=== PATIENT | male | born 1975 | race Caucasian/White ===

== ENCOUNTER 2016-02-12 22:39 | Emergency (ER) | payer OTHER ==
[~2016-02-12] VITALS: Ht 167.6 cm; Wt 72.7 kg
[2016-02-12 22:43] VITALS: BP 147/95; PULSE 89; RESP 16; O2SAT 97
--- NOTE | 2016-02-12 23:03 | ED.REPORT ---
HPI-General Illness Date of Service Feb 12, 2016 ED Provider: Dr. Augustine Fernandez M.D. A healthy 40 year old male presents to the ED with nasal congestion onset 10 days ago. The mucous in his nose is thick, chunky, and bad tasting. The patient also reports cough, subjective fever, shortness of breath, and a pressure headache. The shortness of breath is worse at night or when laying flat. The patient has has similar symptoms in the past. Nursing Notes Stated Complaint: COUGH & TROUBLE BREATHING Chief Complaint: FLU/Cold Symptoms Nursing Notes Reviewed: Yes Allergies: Coded Allergies: No Known Allergies (Unverified , 02/12/16) Scheduled Amoxicillin/Clav K 875-125 mg (Augmentin 875-125 mg) 1 Each Tablet 1 TABLET PO BID General Time Seen by MD: 23:02 Chief Complaint Congested Hx Obtained From: Patient Arrived By: Walk-in Sudden in Onset?: No Onset Occurred: More than a week ago... (10 days) Symptom Duration: Since onset Location: : Head Quality: Pressure Severity: Current: Moderate Severity: Maximum: Moderate Associated with: Reports: Cough, Fever, Shortness of breath Pertinent Negative: Relieved by nothing Recent Healthcare: No recent doctor visit Similar Sx Previous: Yes Past Medical History Past Medical History None reported Past Surgical History None reported Smoking History Never Smoker Ambulatory Status Independent Review of Systems Full Review of Systems Constitutional: Reports: Fever (subjective) Ears / Nose / Throat: Reports: Nasal congestion Respiratory: Reports: Non-productive cough, Shortness of breath Neurologic: Reports: Headache Complete sys rev & neg: except as marked. Physical Exam Vital Signs Vital Signs Date Time Temp Pulse Resp B/P Pulse Ox O2 Delivery O2 Flow Rate FiO2 02/12/16 22:43 36.5 89 16 147/95 97 Room Air Initial VS: Reviewed Head / Eyes: Atraumatic, Normocephalic Respiratory: Breath sounds normal, Clear to auscultation, No respiratory distress Cardiovascular: Regular rate & rhythm, Heart sounds normal Skin: Warm, Dry, No cyanosis Neurologic: Alert, Oriented, Nonfocal Psychiatric: Mood/affect normal, Behavior normal, Normal thought content General/Constitutional: Awake, Alert ENT: Airway patent, Mucous membranes moist, Pharynx NL Nasal congestion Dry cough Re-Eval/Medical Decision Med Decision/Clinical Course Nasal congestion and possible sinusitis. Drainage with Afrin or decongestants recommended. If this is unavailable and commerce symptoms are progressive, then he may fill and start his Augmentin prescription. Albuterol puffer already at home for dry cough. Recommended he use it. Follow up with PCP. Time of Eval: 23:15 Patient Status: Condition improved Re-Evaluation/Progress Note: Discussed with patient diagnosis and plan for discharge. Follow-up and return to the ER instructions given. Patient agrees with plan for care and all questions were addressed. Counseled Regarding: Diagnosis, Need for follow-up, When/why to return to ED Discharge & Departure Primary Impression: Sinusitis Sinusitis location: maxillary Chronicity: acute Recurrence: not specified Qualified Code: J01.00 - Acute maxillary sinusitis, unspecified Additional Impressions: Upper respiratory infection URI type: unspecified viral URI Qualified Code: J06.9 - Acute upper respiratory infection, unspecified Reactive airway disease that is not asthma Disposition: Home Discharge Condition All VS Reviewed: Yes Condition: Improved Patient Instructions: Reactive Airways Disease (ED), Sinusitis (ED) Additional Instructions: Use Afrin or a nasal decongestant to achieve drainage of the sinuses. Afrin should not be used more than three nights in a row and best confined to nights only. You can, if you prefer, use an [id number] decongestant tablet. If you are not improving with drainage, you may start the antibiotic prescription. Usual albuterol puffer two puffs every 3-4 hours if needed for cough Follow up with your doctor in the office. Follow-up at residency clinic if a local physician as needed. Referrals: NOPCP (PCP) [facility]ribmichelle Attestation Portions of this note were transcribed by Corine Myers. I, Dr. Fernandez, personally performed the history, physical exam, and medical decision-making; I reviewed and confirmed the accuracy of the information in the transcribed note. Signed by: Pilo Villanueva, 02/13/2016, 00:24 copies to: [facility] Augustine Fernandez MD Feb 12, 2016 23:03 CORINE MYERS Feb 12, 2016 23:12
[2016-02-12] MEDS ORDERED: AMOX-366 PO (23:14)
== END 2016-02-12 23:46 | disposition home or self-care (01) ==
LOC: SED 22:39
DX: J01.00 Acute maxillary sinusitis, unspecified (principal)